=== PATIENT | female | born 1975 | race Caucasian/White ===

== ENCOUNTER 2022-03-09 07:37 | Outpatient (CLI) | payer OTHER, SELFPAY ==
--- NOTE | ~2022-03-09 | MR_ITS ---
EXAMINATION: MR lumbar spine wo con DATE: 03/09/2022 08:09 INDICATION: Right-sided sciatica TECHNIQUE: Magnetic resonance imaging (MRI) of the lumbar spine was performed without intravenous con trast. Sequences included sagittal T2-weighted FSE, sagittal T2-weighted FS FSE, sagittal T1-weighted FSE, and axial T2-weighted FSE. COMPARISON: None FINDINGS: Alignment is normal. Vertebral body heights are normal. Normal marrow signal. Mild disc desiccation and disc height loss with annular fissure at L5-S1. Remaining discs are normal. The conus medullaris terminates at L1-L2. There is normal signal in the caudal spinal cord. Paravertebral soft tissues are unremarkable. The following disc levels are specifically discussed: L1-L2: The disc does not extend beyond the endplate margin. There is mild bilateral facet joint osteo arthritis. There is no neural foraminal stenosis. There is no central canal stenosis. L2-L3: Disc is minimally bulging. There is minimal bilateral facet joint osteoarthritis. There is no neural foraminal stenosis. There is no central canal stenosis. L3-L4: Disc is minimally bulging. There is no facet joint osteoarthritis. There is no neural foramina l stenosis. There is no central canal stenosis. L4-L5: Disc is mildly bulging. There is mild bilateral facet joint osteoarthritis. There is mild bila teral neural foraminal stenosis. There is no central canal stenosis. L5-S1: Disc is bulging with annular fissure and small central disc extrusion with disc material exten ding to a 3 mm caudal to the level of the superior endplate of S1. There is minimal bilateral facet j oint osteoarthritis. There is minimal bilateral neural foraminal stenosis. There is no central canal stenosis. IMPRESSION: 1. Mild lumbar spondylosis. Reviewed, dictated and finalized at location A. IMPRESSION: 1. Mild lumbar spondylosis.
== END 2022-03-09 07:38 | disposition home or self-care (01) ==
LOC: ANHIMG 07:41
PROVIDERS: PCP Internal Medicine; Visit Provider Internal Medicine
DX: M54.31 Sciatica, right side (principal); M47.816 Spondylosis without myelopathy or radiculopathy, lumbar region
CPT/HCPCS: 72148